=== PATIENT | male | born 1970 | race Caucasian/White ===

== ENCOUNTER 2020-07-02 09:21 | Outpatient (CLI) | payer OTHER, SELFPAY | END 2020-07-02 09:22 | disposition home or self-care (01) | LOC: ANHAUDASC 09:30 | PROVIDERS: PCP Family Medicine | DX: H91.93 Unspecified hearing loss, bilateral (principal) | CPT/HCPCS: 92557; 92567 ==

== ENCOUNTER 2020-07-04 14:42 | Outpatient (CLI) | payer OTHER, SELFPAY ==
--- NOTE | ~2020-07-04 | US_ITS ---
EXAMINATION: US venous doppler UE RT EXAM DATE: 07/04/2020 15:34 INDICATION: Right arm pain. TECHNIQUE: Multiple grayscale, color flow, Doppler sonographic images of the right upper extremity ve ins obtained by technologist. Compression was performed where able. There is no prior study for scot barney. FINDINGS: Right upper extremity: Jugular vein: ------------> Normal. Subclavian vein: --------> Normal. Axillary vein:------------> Normal. Brachial vein:-----------> Normal. Basilic vein: ------------> Normal. Cephalic vein: ----------> Normal. Radial vein: ------------> Normal. Ulnar vein: > Normal. IMPRESSION: No deep venous thrombosis of the right upper extremity. Reviewed, dictated and finalized at location A. M SASH MAKER
--- NOTE | ~2020-07-04 | US_ITS ---
EXAMINATION: US scrotum doppler EXAM DATE: 07/04/2020 15:21 INDICATION: Right scrotal pain. TECHNIQUE: Multiple grayscale and Doppler images of the testicles and scrotum were obtained bilateral ly. There is no prior study for comparison. FINDINGS: Right testicle measures 4.3 x 2.5 x 3.4 cm and is morphologically normal. Low resistance Doppler chaitanya w confirmed. The epididymis is unremarkable. Small varicocele and hydrocele. Left testicle measures 4.3 x 2.1 x 3.2 cm and is morphologically normal. Low resistance Doppler flow confirmed. The epididymis is unremarkable. Small varicocele and hydrocele. Kidneys, retroperitoneum also briefly scanned, no evidence of retroperitoneal or hydronephrosis. IMPRESSION: 1. Small bilateral varicoceles and hydroceles. Reviewed, dictated and finalized at location A. DING [employer]ER
== END 2020-07-04 14:43 | disposition home or self-care (01) ==
PROVIDERS: PCP Family Medicine; Visit Provider Family Medicine
DX: N50.811 Right testicular pain (principal); I86.1 Scrotal varices; N43.3 Hydrocele, unspecified
CPT/HCPCS: 76870; 93971; 93976